=== PATIENT | female | born 1955 | race Caucasian/White ===

== ENCOUNTER → 2016-09-30 | Outpatient (CLI) | payer BC ==
[~2016-09-30] MED LIST: ALBUTEROL; ALBUTEROL17 GM INH; AMBIEN PO; ANASTROZOLE1 MG PO; CARDIZEM60 M1 PO; CELEXA PO; CITALOPRAM HBR40 MG PO; CRESTOR PO; DILAUDID2 MG PO; DOCUSATE SODIU100 MG PO; FLEXERIL PO; FLOVENT INHALER; FORADIL12 MCG INH; HYDROCODON-ACE1 EAC7 PO; LASIX20 MG PO; LEVAQUIN750 MG PO; LEXAPRO; METOPROLOL TAR25 MG; METOPROLOL TAR25 MG PO; NORCO 5/325 TAB1 TAB PO; NORVASC PO; OMNICEF300 M1 PO; OXYGEN; PREDNISONE1 MG PO; PREDNISONE10 MG/DOSE PO; SPIRIVA INHALER; SYMBICORT INH; THEO-DUR300 MG PO; THEOPHYLLIN PO; TOPROL XL PO; VIT C PO; VIT D PO; VITAMIN B650 M1 PO; VITAMIN C100 MG PO
--- NOTE | ~2016-09-30 | MY10 ---
[facility] A Service of [facility] RADIOLOGY TEXT RESULTS PATIENT: MELISSA RUST LOCATION: [facility] : 55 UNIT #: [id number] AGE: [address]: Mj Kinney MD SEX: F ORDER DR: [id number] [facility] [address] [place], [place] [address] [id number] O MR#: [id number] Acc #: [id number] NAME: MELISSA RUST. : 1955 SEX: F STUDY DATE/TIME: 09/30/2016 11:10 UNIT: [facility] ROOM: STUDY DESCRIPTION: MY Mammogram Screen Uni Dig Rt Attending Physician: Mj Kinney M.D. Referring Physician: Marty Pryor M.D. Ordering Physician: Mj Kinney M.D. Primary Care Physician: Mj Kinney M.D. MEDICAL IMAGING REPORT This report is preliminary unless electronic signature is present EXAM Right breast digital screening mammogram with CAD, 09/30/2016 HISTORY 61-year-old female with history of left breast cancer in 2013 with mastectomy. No current complaints. COMPARISON Right breast diagnostic mammogram 08/26/2015 and 07/24/2014. FINDINGS CC and MLO views were obtained of each breast utilizing digital technique and reviewed with an FDA-approved CAD device. Linear marker was placed over the superior inner right breast denoting previous Lxby-W-Ufvcmdbz site scar. Scattered fibroglandular densities are present within the right breast. The parenchymal pattern appears stable. No new or developing nodule is identified. No architectural distortion or suspicious clustered microcalcifications are seen. IMPRESSION No features suspicious for malignancy in the right breast. Left mastectomy. Routine right breast screening mammogram is recommended in one year. Patients over the age of 40 are entered into a reminder system with target due date for the next mammogram. A result letter will also be sent to the patient. BIRADS: 2 Benign Finding [facility] A Service [facility] RADIOLOGY TEXT RESULTS PATIENT: MELISSA RUST LOCATION: [facility] : 55 UNIT #: [id number] AGE: [address]: Mj Kinney MD SEX: F ORDER DR: Dictated by... Mariaelena Yeboah M.D. THIS IS AN ELECTRONICALLY VERIFIED REPORT Mariaelena Yeboah M.D. at 09/30/2016 5:06 PM PARVEEN/jane TD: 09/30/2016 12:59 JOB #: [id number] MEDICAL IMAGING REPORT Page 1 of 1 COPY
== END | disposition home or self-care (01) ==
LOC: CWCC 10:41
DX: Z12.31 Encounter for screening mammogram for malignant neoplasm of breast (principal); Z80.3 Family history of malignant neoplasm of breast; Z90.12 Acquired absence of left breast and nipple
CPT/HCPCS: G0202